=== PATIENT | female | born 1980 | race Caucasian/White ===

== ENCOUNTER 2023-11-28 19:43 | Inpatient (IN) | payer OTHER ==
[2023-11-28 22:41] VITALS: BMI 35.3
[2023-11-28] MEDS ORDERED: ACETAMINOPHEN 325 MG TABLET (FP) PO PRN (23:11)
[2023-11-28] MEDS ORDERED: guaiFENesin 600 MG TABLET.ER (FP) PO PRN (23:11)
[2023-11-28] MEDS ORDERED: BENZOCAINE/MENTHOL (CHLORASEPTIC ) LOZENGE MM PRN (23:11)
[2023-11-28] MEDS ORDERED: LOPERAMIDE HCL 2 MG CAPSULE PO PRN (23:11)
[2023-11-28] MEDS ORDERED: NALOXONE HCL 0.4 MG/ML VIAL IM PRN (23:11)
[2023-11-28] MEDS ORDERED: IBUPROFEN 400 MG TABLET (FP) PO PRN (23:11)
[2023-11-28] MEDS ORDERED: BENZONATATE 200 MG CAPSULE PO PRN (23:11)
[2023-11-28] MEDS ORDERED: NICOTINE POLACRILEX 2 MG LOZENGE BC PRN (23:11)
[2023-11-28] MEDS ORDERED: NALOXONE (NARCAN) HCL 4 MG/0.1 ML SPRAY NS PRN (23:11)
[2023-11-29] MEDS: MELATONIN 5 MG TABLETS PO SCH (01:27)
[2023-11-29] MEDS ORDERED: BUDESONIDE/FORMETEROL FUMARATE 80/4.5 mcg INHALER IH SCH (10:00)
[2023-11-29] MEDS: PRENATAL VITAMINS W/ FOLIC ACID TABLET (FP) PO SCH (10:37)
[2023-11-29] MEDS: DIVALPROEX SODIUM 500 MG TABLET E.C. PO SCH (10:37)
[2023-11-29] MEDS: methaDONE HCL 40 MG DISPERSABLE TABLET PO SCH (10:38)
[2023-11-29] MEDS: ASPIRIN 325 MG ENTERIC COATED TABLET (FP) PO SCH (10:42)
[2023-11-29 11:17] LABS: POTASSIUM 4.2 mmol/L (3.5-5.1)
[2023-11-29 11:24] LABS: HEMATOCRIT 36.9 % (32.4-45.2); MCH 31.2 pg (25.7-33.7); MCHC 32.5 g/dl (32.0-36.0); MEAN CELL VOLUME 96.2 fl (80-96); PLATELET COUNT 255 10^3/uL (134-434); RBC 3.83 M/mm3 (3.60-5.2); RDW 13.5 % (11.6-15.6); WHITE BLOOD COUNT 6.9 K/mm3 (4.0-10.0)
[2023-11-29 11:26] LABS: ALBUMIN 3.4 g/dl (3.4-5.0); CALCIUM 9.1 mg/dL (8.5-10.1)
[2023-11-29 11:27] LABS: BLOOD UREA NITROGEN 14.6 mg/dL (7-18)
[2023-11-29 11:31] LABS: BILIRUBIN,TOTAL 0.4 mg/dL (0.2-1); CREATININE 0.9 mg/dL (0.55-1.3); TOT PROT 6.9 g/dl (6.4-8.2)
[2023-11-29] MEDS ORDERED: TUBERCULIN PPD 5 TU/0.1ML VIAL ID ONE (11:54)
[2023-11-29] MEDS: LITHIUM CARBONATE 150 MG CAPSULE PO SCH (12:34)
[2023-11-29] MEDS: risperiDONE 1 MG TABLET PO SCH (12:35)
[2023-11-29] MEDS: TUBERCULIN PPD 5 TU/0.1ML SYRINGE (IN PATIENT USE ONLY) ID ONE (12:35)
[2023-11-29] MEDS ORDERED: BUDESONIDE/FORMETEROL FUMARATE 80/4.5 mcg INHALER IH PRN (19:09)
[2023-11-29] MEDS: QUEtiapine FUMARATE 50 MG TABLET PO SCH (21:38)
[2023-11-29] MEDS: THIAMINE 100 MG TABLET PO SCH (21:39)
[2023-11-30 11:09] LABS: EPI CELLS >36 /uL (0-25.1); HYALINE CASTS 2 /uL (0-3.1); PH,URINE 6.5 (5.0-8.0); URINE APPEARANCE CLOUDY; URINE BACTERIA 591 /uL (0-1359); URINE BILIRUBIN NEGATIVE (NEGATIVE); URINE COLOR YELLOW; URINE GLUCOSE (UA) NEGATIVE (NEGATIVE); URINE KETONE NEGATIVE (NEGATIVE); URINE LEUK ESTERASE TRACE (NEGATIVE); URINE NITRITE NEGATIVE (NEGATIVE); URINE PROTEIN TRACE (NEGATIVE); URINE RBC 12 /uL (0-23.9); URINE UROBILINOGEN 0.2 mg/dL (0.2-1.0); URINE WBC 24 /uL (0-25.8)
[2023-11-30] MEDS: hydrOXYzine PAMOATE 25 MG CAPSULE (FP) PO PRN (19:21)
[2023-11-30] MEDS ORDERED: QUEtiapine FUMARATE 25 MG TABLET ONE (20:36)
[2023-12-01] MEDS: GABAPENTIN 100 MG CAPSULE PO SCH (15:17)
[2023-12-01] MEDS: LISINOPRIL 10 MG TABLET PO ONE (15:17)
[2023-12-02] MEDS: DOCUSATE SODIUM 100 MG CAPSULE (FP) PO PRN (10:27)
[2023-12-02] MEDS: hydrOXYzine PAMOATE 50 MG CAPSULE (FP) PO PRN (14:05)
[2023-12-02] MEDS: risperiDONE 0.5 MG TABLET PO SCH (21:12)
[2023-12-02] MEDS: MELATONIN 5 MG TABLETS PO SCH (21:12)
[2023-12-03] MEDS: MAG HYDROX/AL HYDROX/SIMETH 30 ML UNIT-DOSE CUP PO PRN (10:45)
[2023-12-03] MEDS: BISACODYL 5 MG TABLET.DR (FP) PO PRN (16:47)
[2023-12-04] MEDS: P-EPHED 60MG/TRIPROLIDI 2.5MG TABLET PO PRN (10:43)
[2023-12-04] MEDS: GABAPENTIN 100 MG CAPSULE PO SCH (11:43)
[2023-12-04] MEDS: EMTRICITABINE 200MG/TENOFOVIR 300MG PO SCH (12:21)
[2023-12-04] MEDS: GABAPENTIN 100 MG CAPSULE PO ONE (14:13)
[2023-12-04] MEDS: FLUTICASONE PROP 0.05% 16 GM NASAL SPRAY NS SCH (17:13)
[2023-12-05] MEDS: POLYETHYLENE GLYCOL (HEALTHYLAX) 3350 17 GM PACKET PO PRN (06:53)
[2023-12-05] MEDS: MAGNESIUM HYDROX 2400MG/30ML ORAL SUSPENSION 30 ML CUP PO PRN (12:52)
[2023-12-05 17:02] LABS: HIV INTERPRETATION NEGATIVE (NEGATIVE)
[2023-12-06] MEDS: METHOCARBAMOL 500 MG TABLET PO PRN (02:41)
[2023-12-06] MEDS: IBUPROFEN 600 MG TABLET (FP) PO PRN (22:30)
[2023-12-07] MEDS: GABAPENTIN 300 MG CAPSULE PO SCH (06:39)
[2023-12-08] MEDS: SODIUM PHOSPHATE/NA BIPHOS 133 ML ENEMA RC ONE (16:28)
[2023-12-08] MEDS: NICOTINE 21 MG/24 HOURS TOPICAL PATCH TD SCH (16:28)
[2023-12-08] MEDS: BACLOFEN 10 MG TABLET (FP) PO SCH (21:35)
[2023-12-08] MEDS: GABAPENTIN 300 MG CAPSULE PO SCH (21:35)
[2023-12-08] MEDS: LIDOCAINE PATCH REMOVAL MC SCH (21:52)
[2023-12-09] MEDS ORDERED: methaDONE HCL 40 MG DISPERSABLE TABLET PO SCH (06:00)
[2023-12-09] MEDS: methaDONE 240 MG, methaDONE 30 MG PO SCH (06:12)
[2023-12-09 14:01] LABS: INR 0.97 (0.83-1.09)
[2023-12-10] MEDS: BENZTROPINE MESYLATE 0.5 MG TABLET (FP) PO SCH (21:26)
[2023-12-11] MEDS: BENZTROPINE MESYLATE 1 MG TABLET PO SCH (10:11)
[2023-12-11] MEDS: NICOTINE POLACRILEX 2 MG GUM BUC PRN (10:17)
[2023-12-11] MEDS ORDERED: ACETAMINOPHEN 325 MG TABLET (FP) PO PRN (15:00)
[2023-12-12] MEDS: CHOLECALCIFEROL (VIT D3) 400 UNIT (10 MCG) TABLET PO SCH (13:15)
[2023-12-12] MEDS: BACLOFEN 10 MG TABLET (FP) PO SCH (21:21)
[2023-12-13] MEDS: risperiDONE 1 MG TABLET PO SCH ×2 (10:24→21:13)
[2023-12-15] MEDS: LIDOCAINE 4% PATCH TP PRN (10:52)
[2023-12-16 09:05] VITALS: RESP 18
[2023-12-16] MEDS: BISACODYL 10 MG SUPP.RECT PR PRN (14:31)
[2023-12-16] MEDS: SUVOREXANT 10 MG TABLET PO PRN (21:36)
[2023-12-17] MEDS: IBUPROFEN 600 MG TABLET (FP) PO PRN (11:09)
[2023-12-18] MEDS: hydrOXYzine PAMOATE 50 MG CAPSULE (FP) PO PRN (15:14)
[2023-12-20] MEDS ORDERED: diphenhydrAMINE HCL 25 MG CAPSULE (FP) PO ONE (07:59)
[2023-12-20] MEDS: HYDROCORTISONE 1% TOPICAL CREAM 30 GM TUBE TP SCH (08:04)
[2023-12-20] MEDS: diphenhydrAMINE HCL 50 MG CAPSULE PO ONE (08:05)
[2023-12-20] MEDS: diphenhydrAMINE HCL 25 MG CAPSULE (FP) PO SCH (14:43)
[2023-12-20] MEDS: SUVOREXANT 20 MG TABLET PO PRN (21:48)
[2023-12-22 06:46] VITALS: TEMP 97.4
[2023-12-22 10:01] VITALS: BP 136/88; PULSE 86
== END 2023-12-22 10:00 | disposition other institution (70) | DRG 772 ==
LOC: YASAS 19:43 → Y5N 23:26
PROVIDERS: ADMIT Allergy & Immunology; ATTEND Psychiatry & Neurology Pain Medicine
PROC: HZ42ZZZ Group Counseling for Substance Abuse Treatment, Cognitive-Behavioral (ICD-10-PCS; principal; 2023-11-28)
DX: F10.20 Alcohol dependence, uncomplicated (principal); F11.20 Opioid dependence, uncomplicated; F14.20 Cocaine dependence, uncomplicated; F12.20 Cannabis dependence, uncomplicated; F17.210 Nicotine dependence, cigarettes, uncomplicated; F19.282 Other psychoactive substance dependence with psychoactive substance-induced sleep disorder; F19.280 Other psychoactive substance dependence with psychoactive substance-induced anxiety disorder; F19.24 Other psychoactive substance dependence with psychoactive substance-induced mood disorder; F43.21 Adjustment disorder with depressed mood; F32.A Depression, unspecified; F43.10 Post-traumatic stress disorder, unspecified; G24.02 Drug induced acute dystonia; G40.909 Epilepsy, unspecified, not intractable, without status epilepticus; I10 Essential (primary) hypertension; T78.40XA Allergy, unspecified, initial encounter; X58.XXXA Exposure to other specified factors, initial encounter; Z91.410 Personal history of adult physical and sexual abuse; Z63.0 Problems in relationship with spouse or partner; Z86.59 Personal history of other mental and behavioral disorders
CPT/HCPCS: 36415; 80053; 80164; 80178; 80305; 80307; 81003; 81025; 82140; 82652; 83036; 83735; 85027; 85610; 86780; 87389; 93005; 93010; J0475

== ENCOUNTER 2023-12-06 15:04 | Emergency (ER) | payer OTHER ==
[2023-12-06 15:58] VITALS: BP 128/80; PULSE 78; RESP 18; TEMP 98.4; BMI 39.1
[2023-12-06 17:00] LABS: BASO % 0.5 % (0-2.0); HEMATOCRIT 34.9 % (32.4-45.2); HEMOGLOBIN 11.6 GM/dL (10.7-15.3); MCH 31.6 pg (25.7-33.7); MCHC 33.3 g/dl (32.0-36.0); MEAN CELL VOLUME 94.7 fl (80-96); MEAN PLT VOLUME 9.4 fl (7.5-11.1); MONO % 9.2 % (3.8-10.2); NEUT % 53.3 % (42.8-82.8); PLATELET COUNT 224 10^3/uL (134-434); RBC 3.68 M/mm3 (3.60-5.2); RDW 13.5 % (11.6-15.6); WHITE BLOOD COUNT 7.3 K/mm3 (4.0-10.0)
[2023-12-06 17:02] LABS: HCG,QUALITATIVE URINE Negative
[2023-12-06 17:04] LABS: INR 0.94 (0.83-1.09); PROTHROMBIN TIME (PATIENT) 10.8 SEC (9.7-13.0)
[2023-12-06 17:05] LABS: ACTIVATED PTT 30.6 SECONDS (25.2-36.5); EPI CELLS 17 /uL (0-25.1); HYALINE CASTS 1 /uL (0-3.1); PH,URINE 7.5 (5.0-8.0); URINE APPEARANCE CLEAR; URINE BACTERIA 15 /uL (0-1359); URINE BILIRUBIN NEGATIVE (NEGATIVE); URINE COLOR ORANGE; URINE GLUCOSE (UA) NEGATIVE (NEGATIVE); URINE KETONE NEGATIVE (NEGATIVE); URINE LEUK ESTERASE NEGATIVE (NEGATIVE); URINE NITRITE NEGATIVE (NEGATIVE); URINE PROTEIN NEGATIVE (NEGATIVE); URINE RBC 3741 /uL (0-23.9); URINE UROBILINOGEN 0.2 mg/dL (0.2-1.0); URINE WBC 15 /uL (0-25.8)
[2023-12-06 17:10] LABS: CHLORIDE 102 mmol/L (98-107); SODIUM 138 mmol/L (136-145)
[2023-12-06 17:13] LABS: ALBUMIN 3.3 g/dl (3.4-5.0); ANION GAP 8 mmol/L (4-13); BLOOD UREA NITROGEN 16.6 mg/dL (7-18); CO2 28 mmol/L (21-32); GLUCOSE,RANDOM 121 mg/dL (74-106)
[2023-12-06 17:16] LABS: SGOT/AST 24 U/L (15-37); SGPT/ALT 32 U/L (13-61)
[2023-12-06 17:18] LABS: BILIRUBIN,TOTAL 0.2 mg/dL (0.2-1)
[2023-12-06 17:19] LABS: ALK PHOS 75 U/L (45-117)
== END 2023-12-06 21:04 | disposition home or self-care (01) ==
LOC: JER 15:04
DX: O04.6 Delayed or excessive hemorrhage following (induced) termination of pregnancy (principal); Z20.822 Contact with and (suspected) exposure to COVID-19
CPT/HCPCS: 0241U-QW; 36415; 76830-TC; 80053; 81003; 82962; 84702; 84703; 85025; 85610; 85730; 86850; 86900; 86901; 87086; 87491; 87591; 87661; 99284-25